=== PATIENT | female | born 1990 | race Caucasian/White ===

== ENCOUNTER 2021-11-15 20:02 | Emergency (ER) | payer OTHER ==
--- NOTE | 2021-11-15 21:15 | ED Physician Documentation ---
History of Present Illness - Stated complaint Stated Complaint: L FOOT PX - Chief complaint Chief Complaint: Trauma Ext - History obtained from History obtained from: Patient - History of Present Illness Timing: Today Pain level max: 6 Pain level now: 3 - Additonal information Additional information: Patient is a 31-year-old female who accidentally had a large bung driver fall on her left great toe tonight. Noticed bleeding. There is blood pooled underneath the toenail. Worse with walking, better with rest. Tetanus up-to-date. Review of Systems Constitutional: denies: Fever GI: denies: Vomiting, Diarrhea : denies: Now EGA Skin: denies: Rash PD PAST MEDICAL HISTORY - Past Medical History Past Medical History: No - Past Surgical History Past Surgical History: No - Present Medications Home Medications: Ambulatory Orders Medication Instructions Recorded Confirmed No Known Home Medications 11/15/21 11/15/21 - Allergies Allergies/Adverse Reactions: Allergies Allergy/AdvReac Type Severity Reaction Status Date / Time No Known Drug Allergies Allergy Verified 11/15/21 20:22 - Living Situation Living Situation: reports: With family Living Arrangement: reports: At home - Social History Does the pt have substance abuse?: No - Family History Family history: reports: Non contributory - Immunizations Immunizations are current?: Yes Immunizations: TDAP current <10years PD ED PE NORMAL - Vitals Vital signs reviewed: Yes - General General: Alert and oriented X 3, No acute distress - HEENT HEENT: Moist mucous membranes - Derm Derm: Warm and dry - Extremities Extremities: Other (L great toe, The eponychium is pulled up from the germinal matrix., Subungual hematoma present.) - Neuro Neuro: Alert and oriented X 3 - Psych Psych: Normal mood, Normal affect Results - Vitals Vitals: Vital Signs - 24 hr 11/15/21 11/15/21 20:17 21:48 Temperature 36.4 C L 36.5 C Heart Rate 75 77 Respiratory 16 16 Rate Blood Pressure 125/74 123/74 O2 Saturation 99 98 Oxygen O2 Source Room air - Rads (name of study) Left foot x-ray Radiology: EMP read indepedently (Possible distal tuft fracture of the left great toe.) Procedures - General procedure General procedure: The left great toe was anesthetized with bupivacaine in a digital block fashion. Good anesthesia achieved. Electrocautery was used to trephinate the nail and drained the subungual hematoma. The eponychium was placed back under the proximal nail fold. Patient tolerated well. Bandage applied. PD MEDICAL DECISION MAKING - ED course Complexity details: reviewed results, re-evaluated patient, considered differential, d/w patient ED course: The subungual hematoma was evacuated. Tolerated well. The nail was placed back under the proximal nail fold. Bandage applied. Wound care discussed. Possible tuft fracture, should heal on its own. Patient counseled regarding signs and symptoms for which I believe and urgent re-evaluation would be necessary. Patient with good understanding of and agreement to plan and is comfortable going home at this time This document was made in part using voice recognition software. While efforts are made to proofread this document, sound alike and grammatical errors may occur. Departure - Departure Disposition: 01 Home, Self Care Clinical Impression: Subungual hematoma of great toe of left foot Qualifiers: Encounter type: initial encounter Qualified Code(s): S90.212A - Contusion of left great toe with damage to nail, initial encounter Condition: Stable Instructions: ED Hematoma Subungual Follow-Up: NASREEN RICHARDSON, [Primary Care Provider] - Within 1 week Comments: Please keep the wound clean. Return if you worsen. Try to limit flexion and extension of the toe so as to not dislodge the nailbed. We will keep you out of work for the next few days to limit your walking. There may be a small fracture at the tip of your toe, but this will heal on its own. Forms: Activity restrictions Discharge Date/Time: 11/15/21 21:48
[2021-11-15 21:49] VITALS: BP 123/74
--- NOTE | 2021-11-15 22:32 | XRAY Report ---
PROCEDURE: Foot 3 View LT INDICATIONS: toe injury TECHNIQUE: 3 views of the foot were acquired. COMPARISON: None. FINDINGS: Bones: There is a mildly displaced fracture through the tuft of the first distal phalanx. No dislocat ions. No suspicious bony lesions. Soft tissues: There is soft tissue swelling of the great toe. No radiopaque foreign bodies. IMPRESSION: 1. Mildly displaced fracture of the first distal phalanx. Reviewed by: Alessio Meyer MD on 11/15/2021 10:31 PM PDT Approved by: Alessio Meyer MD on 11/15/2021 10:31 PM PDT Station ID: [id number]
== END 2021-11-15 21:48 | disposition home or self-care (01) ==
LOC: ED 20:02
DX: S90.212A Contusion of left great toe with damage to nail, initial encounter (principal); W20.8XXA Other cause of strike by thrown, projected or falling object, initial encounter
CPT/HCPCS: 11740; 99283

== ENCOUNTER 2021-11-16 11:27 | Emergency (ER) | payer OTHER ==
[2021-11-16 11:49] VITALS: BP 128/73
--- NOTE | 2021-11-16 12:16 | ED Physician Documentation ---
History of Present Illness - Stated complaint Stated Complaint: LT TOE PX - Chief complaint Chief Complaint: Ext Problem - History obtained from History obtained from: Patient - History of Present Illness Timing: Today - Additonal information Additional information: Patient is a 31-year-old female who presents to the emergency department complaining of left toe pain. She was seen here last night. She states that she would like the toenail sutured back down. We did discuss this last night but elected not to perform this procedure last night. Review of Systems Constitutional: denies: Fever, Chills GI: denies: Vomiting, Diarrhea Skin: denies: Rash Musculoskeletal: denies: Neck pain, Back pain Neurologic: denies: Headache PD PAST MEDICAL HISTORY - Past Medical History Past Medical History: No - Past Surgical History Past Surgical History: No - Present Medications Home Medications: Ambulatory Orders Medication Instructions Recorded Confirmed No Known Home Medications 11/15/21 11/16/21 - Allergies Allergies/Adverse Reactions: Allergies Allergy/AdvReac Type Severity Reaction Status Date / Time No Known Drug Allergies Allergy Verified 11/16/21 11:49 - Living Situation Living Situation: reports: With family Living Arrangement: reports: At home - Social History Does the pt have substance abuse?: No - Family History Family history: reports: Non contributory - Immunizations Immunizations are current?: Yes Immunizations: TDAP current <10years PD ED PE NORMAL - Vitals Vital signs reviewed: Yes - General General: Alert and oriented X 3, No acute distress - HEENT HEENT: Moist mucous membranes - Respiratory Respiratory: No respiratory distress - Neuro Neuro: Alert and oriented X 3 - Psych Psych: Normal mood, Normal affect Results - Vitals Vitals: Vital Signs - 24 hr 11/16/21 11:46 Temperature 36.5 C Heart Rate 98 Respiratory 16 Rate Blood Pressure 128/73 O2 Saturation 98 Oxygen O2 Source Room air PD MEDICAL DECISION MAKING - ED course Complexity details: considered differential, d/w patient ED course: The left great toe was cleansed with alcohol and was anesthetized with 0.5% bupivacaine. Digital block performed. Excellent anesthesia achieved. 2 sutures were used to reapproximate the toenail under the proximal nail fold. The trephinated hole in the nail is still present and draining well. Dermabond was then applied over the sutures near the proximal nail fold. Patient tolerated well. No complications. Patient counseled regarding signs and symptoms for which I believe and urgent re-evaluation would be necessary. Patient with good understanding of and agreement to plan and is comfortable going home at this time This document was made in part using voice recognition software. While efforts are made to proofread this document, sound alike and grammatical errors may occur. Departure - Departure Disposition: 01 Home, Self Care Clinical Impression: Subungual hematoma of great toe of left foot Qualifiers: Encounter type: initial encounter Qualified Code(s): S90.212A - Contusion of left great toe with damage to nail, initial encounter Toenail avulsion Qualifiers: Encounter type: initial encounter Qualified Code(s): S91.209A - Unspecified open wound of unspecified toe(s) with damage to nail, initial encounter Condition: Good Instructions: ED Laceration Ext Sutr Stap Tape, ED Hematoma Subungual Follow-Up: NASREEN RICHARDSON DO [Primary Care Provider] - Comments: Please follow-up with your doctor for further care. The sutures should be removed in about 1 week. Do not apply ointments as this may dissolve the glue. You can apply ointment about 30 minutes prior to having the sutures removed. Return if you notice redness, swelling or drainage from the wound. Discharge Date/Time: 11/16/21 13:00
== END 2021-11-16 13:00 | disposition home or self-care (01) ==
LOC: ED 11:27
DX: S90.212A Contusion of left great toe with damage to nail, initial encounter (principal); S91.209A Unspecified open wound of unspecified toe(s) with damage to nail, initial encounter; X58.XXXA Exposure to other specified factors, initial encounter
CPT/HCPCS: 11760